=== PATIENT | male | born 1960 | race African-American/Black ===

== ENCOUNTER → 2018-12-19 | Outpatient (CLI) | payer SELFPAY ==
[~2018-12-19] MED LIST: CATHETER FLUSH 10 ML SYR IV PRN; HOLD METFORMIN - RECEIVED CONTRAST 20 ML VIAL IV SCH; IOHEXOL 350 MG/ML 100 ML (OMNIPAQUE 350) VIAL IV ONE; NS 100 ML (IVPB) BAG IV ONE
--- NOTE | 2018-12-19 11:38 | Diagnostic Imaging Report ---
PROCEDURE: CT abdomen and pelvis with contrast. TECHNIQUE: Multiple contiguous axial images were obtained through the abdomen and pelvis after administration of intravenous contrast. Auto Exposure Controls were utilized during the CT exam to meet ALARA standards for radiation dose reduction. INDICATION: Hepatitis C and weight loss. COMPARISON: No prior studies are available for comparison. FINDINGS: The lung bases are clear. The liver demonstrates generalized low density consistent with hepatic steatosis. No discrete liver mass is identified. The gallbladder is unremarkable. No biliary duct dilatation is seen. The pancreas and spleen are unremarkable. No adrenal mass is detected. Kidneys are unremarkable apart from a cortical low density in the left kidney measuring 2 cm, most suggestive of a cyst. Aorta is non-aneurysmal. No central retroperitoneal or mesenteric lymphadenopathy is seen. Small and large bowel loops are normal in caliber. There is diverticulosis of the sigmoid but no evidence of acute diverticulitis. Bladder is unremarkable. The prostate is enlarged. No pelvic lymphadenopathy is seen. Bony deformity of the pubic bones is seen, perhaps owing to prior fracture. IMPRESSION: 1. Hepatic steatosis. No discrete liver mass is identified. 2. Prostatomegaly. 3. Uncomplicated diverticulosis. Dictated by: Dictated on workstation # [id number]
== END ==
LOC: RAD FS 10:39
PROVIDERS: ATTEND Family Medicine
DX: B19.20 Unspecified viral hepatitis C without hepatic coma (principal); K76.0 Fatty (change of) liver, not elsewhere classified; N40.0 Benign prostatic hyperplasia without lower urinary tract symptoms; K57.30 Diverticulosis of large intestine without perforation or abscess without bleeding
CPT/HCPCS: 74177